=== PATIENT | male | born 1960 | race Caucasian/White ===

== ENCOUNTER 2019-10-05 21:29 | Emergency (ER) | payer BC ==
[2019-10-05 21:44] VITALS: BP 136/86; PULSE 91
--- NOTE | 2019-10-05 22:06 | EDM.PDOC ---
ED HPI GENERAL MEDICAL PROBLEM - General Chief Complaint: Upper Extremity Injury/Pain Stated Complaint: LT WRIST INJURY Time Seen by Provider: 10/05/19 21:41 Source of Information: Reports: Patient History Limitations: Reports: No Limitations - History of Present Illness INITIAL COMMENTS - FREE TEXT/NARRATIVE: This is a 59-year-old male. He was out camping and [place]. Is he was walking along the road that had some rather large rocks he stepped with his right foot and his ankle wobbled which caused him to lose balance and he fell landing on his left knee and catching himself with his left hand. He had immediate pain in his left wrist and now he has some swelling and tenderness and limited range of motion. He also has abrasions to his left knee and left lower leg. He states his right ankle is nontender. He denies any other acute trauma. Left Wrist Pain Score (Numeric/FACES): 10 - Related Data Allergies Allergy/AdvReac Type Severity Reaction Status Date / Time meloxicam Allergy Severe Rash Verified 10/05/19 21:44 Home Meds: Home Meds atorvaSTATin Calcium [Atorvastatin Calcium] 40 mg PO DAILY 08/05/14 [History] Pedi Multivit #22/Vit D3/Vit K [Multivitamins Chewables Tablet] 1 tab CHEW DAILY 02/05/16 [History] Diclofenac Sodium [Voltaren] 1 applic TOP ASDIRECTED PRN 05/03/18 [History] Lidocaine/Prilocaine [Lidocaine-Prilocaine Cream] 1 applic TOP ASDIRECTED PRN 05/03/18 [History] metFORMIN HCl [Metformin HCl] 500 mg PO BID 05/03/18 [History] lisinopriL [Lisinopril] 1 tab PO DAILY 10/05/19 [History] Past Medical History HEENT History: Reports: Other (See Below) Other HEENT History: wears glasses Cardiovascular History: Reports: High Cholesterol, Hypertension Respiratory History: Reports: None Gastrointestinal History: Reports: Colon Polyp Other Gastrointestinal History: being treated for colitis Genitourinary History: Reports: None Musculoskeletal History: Reports: Arthritis, Other (See Below) Other Musculoskeletal History: DDD, intermittent back pain Neurological History: Reports: Migraines Psychiatric History: Reports: None Endocrine/Metabolic History: Reports: Obesity/BMI 30+ Other Endocrine/Metabolic History: " pre diabetic" Hematologic History: Reports: None Immunologic History: Reports: None Oncologic (Cancer) History: Reports: None Dermatologic History: Reports: None - Past Surgical History Head Surgeries/Procedures: Reports: None HEENT Surgical History: Reports: Myringotomy w Tube(s) GI Surgical History: Reports: Colonoscopy Musculoskeletal Surgical History: Reports: Carpal Tunnel Other Musculoskeletal Surgeries/Procedures:: hx annetta [facility] Social & Family History - Family History Family Medical History: Noncontributory - Tobacco Use Smoking Status *Q: Never Smoker Second Hand Smoke Exposure: No - Caffeine Use Caffeine Use: Reports: None - Recreational Drug Use Recreational Drug Use: No Review of Systems - Review of Systems Review Of Systems: See Below Constitutional: Denies: Chills, Fever Eyes: Reports: No Symptoms Ears: Reports: No Symptoms Nose: Reports: No Symptoms Mouth/Throat: Reports: No Symptoms Respiratory: Denies: Shortness of Breath, Cough Cardiovascular: Denies: Chest Pain GI/Abdominal: Reports: No Symptoms Genitourinary: Reports: No Symptoms Musculoskeletal: Reports: Other (Left wrist pain) Skin: Reports: Other (Abrasions to the left knee and lower leg) Neurological: Reports: No Symptoms Psychiatric: Reports: No Symptoms ED EXAM, GENERAL - Physical Exam Exam: See Below Exam Limited By: No Limitations General Appearance: Alert, WD/WN, No Apparent Distress Eye Exam: Bilateral Eye: Normal Inspection Ears: Normal External Exam Nose: Normal Inspection Throat/Mouth: Normal Lips, Normal Voice, No Airway Compromise Head: Normocephalic Neck: Supple Respiratory/Chest: No Respiratory Distress GI/Abdominal: Other (Obese, denies any tenderness.) Back Exam: Full Range of Motion Extremities: Other (He is noted to have some swelling over the dorsal wrist a bette. He is able to extend and and flex his fingers though it hurts to make a fist. Neurovascular is intact in all 5 digits. He has limited flexion extension of that wrist secondary to pain. He denies any left elbow or shoulder tenderness. His left lower extremity has abrasions on the lateral side of the knee and the proximal portion of the lower leg. None of these abrasions appear to need suturing. Denies any right ankle tenderness.) Neurological: Alert, Oriented Psychiatric: Normal Affect, Normal Mood Skin Exam: Warm, Dry Course - Vital Signs Last Recorded V/S: Last Vital Signs Temp 98.3 F 10/05/19 21:39 Pulse 91 10/05/19 21:39 Resp 20 10/05/19 21:39 BP 136/86 10/05/19 21:39 Pulse Ox 97 10/05/19 21:39 - Orders/Labs/Meds Orders: Active Orders 24 hr Category Date Time Status Communication Order [RC] STAT Care 10/05/19 23:09 Ordered Vaccines to be Administered [RC] PER UNIT ROUTINE Care 10/05/19 23:08 Ordered Wrist Comp Min 3V Lt [CR] Stat Exams 10/05/19 21:59 Taken DME for Discharge [COMM] Stat Oth 10/05/19 23:09 Ordered Meds: Medications Discontinued Medications Generic Name Dose Route Start Last Admin Trade Name Freq PRN Reason Stop Dose Admin Diphtheria/Tetanus/Acell Pertussis 0.5 ml 10/05/19 23:08 Adacel IM 10/05/19 23:09 .ONCE ONE - Radiology Interpretation Free Text/Narrative:: X-ray of the left wrist shows a dorsal avulsion of the small bones of the hand, no other acute fractures. - Re-Assessments/Exams Free Text/Narrative Re-Assessment/Exam: 10/05/19 23:11 02 the patient regarding his avulsion fracture of the wrist cock-up splint. He is not up-to-date with his tetanus so we will give him a Tdap. We will clean up his abrasions and put some triple antibiotic ointment and wrapped them. He is to follow-up with his family doctor when he gets home regarding this avulsion fracture and of his left wrist. Departure - Departure Time of Disposition: 23:11 Disposition: Home, Self-Care 01 Condition: Fair Clinical Impression: Abrasion, left lower leg, initial encounter, Avulsion fracture of left wrist - Discharge Information *PRESCRIPTION DRUG MONITORING PROGRAM REVIEWED*: No *COPY OF PRESCRIPTION DRUG MONITORING REPORT IN PATIENT MARIOLA: No Instructions: Wrist Fracture Treated With Immobilization, [id number], Abrasion, [id number] Referrals: PCP,Not In Area [Primary Care Provider] - Forms: ED Department Discharge Additional Instructions: The wrist splint faithfully when you are up and when you are sleeping though you may take it off when you take a shower, keep the abrasions clean dry and covered, watch for infection, follow-up with your family doctor when you get home regarding your wrist avulsion fracture, the medicine for pain from the [facility] in the lobby on your way out, return to the ER if needed Sepsis Event Note (ED) - Evaluation Sepsis Screening Result: No Definite Risk - Focused Exam Vital Signs: Vital Signs Temp Pulse Resp BP Pulse Ox 10/05/19 21:39 98.3 F 91 20 136/86 97 - My Orders Last 24 Hours: My Active Orders 10/05/19 21:59 Wrist Comp Min 3V Lt [CR] Stat 10/05/19 23:08 Vaccines to be Administered [RC] PER UNIT ROUTINE 10/05/19 23:09 Communication Order [RC] STAT DME for Discharge [COMM] Stat - Assessment/Plan Last 24 Hours: My Active Orders 10/05/19 21:59 Wrist Comp Min 3V Lt [CR] Stat 10/05/19 23:08 Vaccines to be Administered [RC] PER UNIT ROUTINE 10/05/19 23:09 Communication Order [RC] STAT DME for Discharge [COMM] Stat
[2019-10-05] MEDS ORDERED: Diphtheria,Pertussis(Acell),Tetanus Vaccine 0.5 ML Syringe IM ONE (23:08)
--- NOTE | 2019-10-06 09:22 | CR ---
Left wrist: 4 views of the left wrist were obtained. Comparison: No previous wrist study. Cysts are noted within the navicular bone which appear nonacute. Joint space narrowing is noted off the distal tubercular bone. Mild joint space narrowing is noted within the CMC joint of the thumb. Dystrophic calcification is seen posteriorly off the wrist. Mild soft tissue swelling is noted. No acute fracture or dislocation is seen. Impression: 1. Soft tissue swelling. Degenerative change. 2. No acute bony abnormality is appreciated. Diagnostic code #2 This report was dictated in MDT
== END 2019-10-06 00:09 | disposition home or self-care (01) ==
LOC: JD.ED 21:29
DX: S62.102A Fracture of unspecified carpal bone, left wrist, initial encounter for closed fracture (principal); S80.212A Abrasion, left knee, initial encounter; S80.812A Abrasion, left lower leg, initial encounter; I10 Essential (primary) hypertension; E78.00 Pure hypercholesterolemia, unspecified; E66.9 Obesity, unspecified; Z23 Encounter for immunization; Z68.42 Body mass index [BMI] 45.0-49.9, adult; Z88.6 Allergy status to analgesic agent; Z79.899 Other long term (current) drug therapy; W22.8XXA Striking against or struck by other objects, initial encounter
CPT/HCPCS: 73110-26-LT; 73110-LT; 90471; 90715; 99283; 99283-25